=== PATIENT | male | born 1940 | race Caucasian/White ===

== ENCOUNTER 2019-04-11 23:05 | Inpatient (IN) | payer MEDICARE, OTHER ==
[~2019-04-11] VITALS: Ht 165.1 cm; Wt 87.3 kg
[~2019-04-11 23:05] MED LIST: AMLO-147 ORAL; ASPI-1163 ORAL; ATOR10TA65 ORAL; HYDR25TA6 ORAL; LEVO25TA6 PO; LEVO500T48 PO; QUIN40TA31 ORAL
[2019-04-11] MEDS ORDERED: SODIUM CHLORIDE 0.9% 1L BAG IV* STA (23:14)
[2019-04-11] MEDS ORDERED: ACETAMINOPHEN 500 MG TAB PO STA (23:18)
[2019-04-11] MEDS ORDERED: CHLORPROMAZINE 25 MG TAB PO ONE (23:30)
[2019-04-12] MEDS ORDERED: BISACODYL (EC) 5 MG TAB PO PRN (01:00)
[2019-04-12] MEDS ORDERED: DOCUSATE SODIUM 100 MG CAP PO PRN (01:00)
[2019-04-12] MEDS ORDERED: ACETAMINOPHEN 325 MG TAB PO PRN (01:00)
[2019-04-12] MEDS ORDERED: ONDANSETRON 4 MG INJ IV PRN ×3 (01:00→01:30)
[2019-04-12] MEDS ORDERED: CEFTRIAXONE 2 GM/50 ML (PMX) 50 ML IVPB ONE (01:00)
[2019-04-12] MEDS ORDERED: NACL 0.9% 3 ML SYG IV SCH (01:00)
[2019-04-12] MEDS ORDERED: LIDOCAINE/MYLANTA 40 ML BTL PO ONE (01:30)
[2019-04-12] MEDS ORDERED: VANCOMYCIN IV PER PHARMACY XX SCH (01:30)
[2019-04-12] MEDS ORDERED: VANCOMYCIN 1.5 GM/NS 250 ML 250 ML IVPB ONE (02:00)
[2019-04-12] MEDS: SOD CHLORIDE 0.9% 1,000 ML IV SCH ×2 (02:22→13:51)
[2019-04-12] MEDS ORDERED: SOD CHLORIDE 0.9% 500 ML IV ONE (06:00)
[2019-04-12] MEDS: PIPER-TAZO 3.375 GM IV (PMX) 100 ML IVPB SCH ×4 (06:24→23:42)
[2019-04-12 13:10] VITALS: Ht 165.1 cm; Wt 87.3 kg
[2019-04-12 13:45] VITALS: BP 126/59; PULSE 88; RESP 20
[2019-04-12] MEDS ORDERED: VANCOMYCIN 1.25 GM/NS 250 ML 250 ML IVPB SCH (14:00)
[2019-04-12] MEDS ORDERED: POTASSIUM CHLORIDE (SR) 20 MEQ TAB PO STA (14:19)
[2019-04-12] MEDS: GUAIFENESIN/DM 5ML CUP PO PRN (14:29)
[2019-04-12 16:23] VITALS: BP 97/52; PULSE 69; RESP 20
[2019-04-12 16:25] VITALS: BP 109/57; PULSE 85
[2019-04-12 16:26] VITALS: BP 144/64; PULSE 85
[2019-04-12] MEDS ORDERED: CALCIUM CARBONATE 500 MG CHEW TAB PO PRN (17:00)
[2019-04-12] MEDS: ACETAMINOPHEN 325 MG TAB PO PRN (19:54)
[2019-04-12 20:00] VITALS: BP 151/73; PULSE 79; RESP 22
[2019-04-12] MEDS: ATORVASTATIN 10 MG TAB PO SCH (20:00)
[2019-04-13] VITALS (8 sets, daily range): BP systolic 105–156; BP diastolic 54–70; PULSE 54–63; RESP 18–21
[2019-04-13] MEDS: VANCOMYCIN 1.25 GM/NS 250 ML 250 ML IVPB SCH (02:30)
[2019-04-13] MEDS: SOD CHLORIDE 0.9% 1,000 ML IV SCH ×2 (03:39→16:42)
[2019-04-13] MEDS: PIPER-TAZO 3.375 GM IV (PMX) 100 ML IVPB SCH ×3 (05:46→17:11)
[2019-04-13] MEDS: ASPIRIN (EC) 81 MG TAB PO SCH (08:25)
[2019-04-13] MEDS: GUAIFENESIN/DM 5ML CUP PO PRN (17:11)
[2019-04-13] MEDS: ATORVASTATIN 10 MG TAB PO SCH (21:21)
[2019-04-14] VITALS (9 sets, daily range): BP systolic 119–173; BP diastolic 61–77; PULSE 56–67; RESP 18–19
[2019-04-14] MEDS: PIPER-TAZO 3.375 GM IV (PMX) 100 ML IVPB SCH ×3 (00:05→11:11)
[2019-04-14] MEDS: GUAIFENESIN/DM 5ML CUP PO PRN ×4 (01:09→22:54)
[2019-04-14] MEDS: VANCOMYCIN 1.25 GM/NS 250 ML 250 ML IVPB SCH (03:09)
[2019-04-14] MEDS: SOD CHLORIDE 0.9% 1,000 ML IV SCH ×2 (06:16→20:44)
[2019-04-14] MEDS: ASPIRIN (EC) 81 MG TAB PO SCH (08:10)
[2019-04-14] MEDS: CEFTRIAXONE 2 GM/50 ML (PMX) 50 ML IVPB SCH (15:55)
[2019-04-14] MEDS: ATORVASTATIN 10 MG TAB PO SCH (20:43)
[2019-04-15 04:02] VITALS: BP 114/61; PULSE 58; RESP 18
[2019-04-15] MEDS: LEVOTHYROXINE 25 MCG TAB PO SCH (06:18)
[2019-04-15 07:21] VITALS: BP 152/72; PULSE 57; RESP 18
[2019-04-15] MEDS: ASPIRIN (EC) 81 MG TAB PO SCH (08:45)
[2019-04-15 11:52] VITALS: BP 150/67; PULSE 52; RESP 18
[2019-04-15] MEDS: CEFTRIAXONE 2 GM/50 ML (PMX) 50 ML IVPB SCH (15:06)
[2019-04-15 15:34] VITALS: BP 153/69; PULSE 56; RESP 17
[2019-04-15 20:00] VITALS: BP 151/71; PULSE 54; RESP 20
[2019-04-15] MEDS: ATORVASTATIN 10 MG TAB PO SCH (20:02)
[2019-04-16] VITALS: BP 147/73; PULSE 58; RESP 20
[2019-04-16 04:00] VITALS: BP 138/68; PULSE 51; RESP 20
[2019-04-16] MEDS: LEVOTHYROXINE 25 MCG TAB PO SCH (06:12)
[2019-04-16 07:57] VITALS: BP 140/64; PULSE 49; RESP 22
[2019-04-16] MEDS: ASPIRIN (EC) 81 MG TAB PO SCH (08:42)
[2019-04-16 11:33] VITALS: BP 150/65; PULSE 75; RESP 22
[2019-04-16 16:11] VITALS: BP 155/84; PULSE 55; RESP 22
[2019-04-16] MEDS: CEFTRIAXONE 2 GM/50 ML (PMX) 50 ML IVPB SCH (16:43)
[2019-04-16 20:00] VITALS: BP 154/70; PULSE 70; RESP 20
[2019-04-16] MEDS: ATORVASTATIN 10 MG TAB PO SCH (21:34)
[2019-04-17] VITALS (10 sets, daily range): BP systolic 126–177; BP diastolic 59–82; PULSE 51–65; RESP 18–20
[2019-04-17] MEDS: LEVOTHYROXINE 25 MCG TAB PO SCH (06:14)
[2019-04-17] MEDS: ASPIRIN (EC) 81 MG TAB PO SCH (09:00)
[2019-04-17] MEDS: ENOXAPARIN 40 MG/0.4 ML SYG SC SCH (09:08)
[2019-04-17] MEDS: CEFTRIAXONE 2 GM/50 ML (PMX) 50 ML IVPB SCH (15:06)
[2019-04-17] MEDS ORDERED: AMLODIPINE 10 MG TAB PO ONE (16:00)
[2019-04-17] MEDS: ATORVASTATIN 10 MG TAB PO SCH (20:15)
[2019-04-18] VITALS: BP 147/68; PULSE 69; RESP 20
[2019-04-18 04:00] VITALS: BP 115/68; PULSE 62; RESP 20
[2019-04-18] MEDS: LEVOTHYROXINE 25 MCG TAB PO SCH (05:57)
[2019-04-18 07:50] VITALS: BP 155/69; PULSE 58; RESP 22
[2019-04-18] MEDS: AMLODIPINE 10 MG TAB PO SCH (08:40)
[2019-04-18] MEDS: ASPIRIN (EC) 81 MG TAB PO SCH (08:42)
[2019-04-18] MEDS: ENOXAPARIN 40 MG/0.4 ML SYG SC SCH (08:50)
[2019-04-18 12:00] VITALS: BP 150/76; PULSE 62; RESP 22
[2019-04-18] MEDS: CEFTRIAXONE 2 GM/50 ML (PMX) 50 ML IVPB SCH (14:59)
[2019-04-18 16:00] VITALS: BP 144/68; PULSE 58; RESP 22
[2019-04-18 20:33] VITALS: BP 153/65; PULSE 66; RESP 18
[2019-04-18] MEDS: ATORVASTATIN 10 MG TAB PO SCH (20:46)
[2019-04-19] VITALS (8 sets, daily range): BP systolic 126–168; BP diastolic 66–76; PULSE 52–64; RESP 16–22
[2019-04-19] MEDS: LEVOTHYROXINE 25 MCG TAB PO SCH (06:17)
[2019-04-19] MEDS: ASPIRIN (EC) 81 MG TAB PO SCH (08:28)
[2019-04-19] MEDS: AMLODIPINE 10 MG TAB PO SCH (08:28)
[2019-04-19] MEDS: ENOXAPARIN 40 MG/0.4 ML SYG SC SCH (08:55)
[2019-04-19] MEDS: CEFTRIAXONE 2 GM/50 ML (PMX) 50 ML IVPB SCH (14:34)
[2019-04-19] MEDS: ATORVASTATIN 10 MG TAB PO SCH (21:56)
[2019-04-20] VITALS (8 sets, daily range): BP systolic 17–173; BP diastolic 65–78; PULSE 55–67; RESP 17–18
[2019-04-20] MEDS: LEVOTHYROXINE 25 MCG TAB PO SCH (06:18)
[2019-04-20] MEDS: ASPIRIN (EC) 81 MG TAB PO SCH (09:02)
[2019-04-20] MEDS: AMLODIPINE 10 MG TAB PO SCH (09:04)
[2019-04-20] MEDS: ENOXAPARIN 40 MG/0.4 ML SYG SC SCH (10:11)
[2019-04-20] MEDS: CEFTRIAXONE 2 GM/50 ML (PMX) 50 ML IVPB SCH (15:47)
[2019-04-20] MEDS: ATORVASTATIN 10 MG TAB PO SCH (21:37)
[2019-04-21 00:12] VITALS: BP 119/64; PULSE 61; RESP 18
[2019-04-21 04:08] VITALS: BP 115/65; PULSE 57; RESP 18
[2019-04-21] MEDS: LEVOTHYROXINE 25 MCG TAB PO SCH (05:52)
[2019-04-21 07:25] VITALS: BP_SYST 153; BP_SYST 17; BP_DIAS 70; PULSE 61
[2019-04-21] MEDS: AMLODIPINE 10 MG TAB PO SCH (08:07)
[2019-04-21] MEDS: ASPIRIN (EC) 81 MG TAB PO SCH (08:07)
[2019-04-21] MEDS: ENOXAPARIN 40 MG/0.4 ML SYG SC SCH (08:11)
[2019-04-21 12:39] VITALS: BP_SYST 138; BP_SYST 16; BP_DIAS 65; PULSE 54
[2019-04-21] MEDS: CEFTRIAXONE 2 GM/50 ML (PMX) 50 ML IVPB SCH (15:18)
[2019-04-21 15:35] VITALS: BP_SYST 155; BP_SYST 17; BP_DIAS 67; PULSE 56
[2019-04-21 19:41] VITALS: BP 135/65; PULSE 57; RESP 18
[2019-04-21] MEDS: ATORVASTATIN 10 MG TAB PO SCH (20:42)
[2019-04-22 00:21] VITALS: BP 133/60; PULSE 54; RESP 18
[2019-04-22 04:12] VITALS: BP 132/62; PULSE 54; RESP 18
[2019-04-22] MEDS: LEVOTHYROXINE 25 MCG TAB PO SCH (06:50)
[2019-04-22 07:40] VITALS: BP 137/67; PULSE 57; RESP 20
[2019-04-22] MEDS: AMLODIPINE 10 MG TAB PO SCH (09:37)
[2019-04-22] MEDS: ASPIRIN (EC) 81 MG TAB PO SCH (09:37)
[2019-04-22] MEDS: ENOXAPARIN 40 MG/0.4 ML SYG SC SCH (09:45)
[2019-04-22 11:15] VITALS: BP 149/69; PULSE 59; RESP 20
[2019-04-22 14:58] VITALS: BP 148/68; PULSE 60; RESP 20
[2019-04-22] MEDS: CEFTRIAXONE 2 GM/50 ML (PMX) 50 ML IVPB SCH (15:51)
[2019-04-22 20:00] VITALS: BP 142/69; PULSE 60; RESP 17
[2019-04-22] MEDS: ATORVASTATIN 10 MG TAB PO SCH (20:20)
[2019-04-23] VITALS: BP 132/63; PULSE 63; RESP 18
[2019-04-23 04:00] VITALS: BP 139/60; PULSE 57; RESP 17
[2019-04-23] MEDS: LEVOTHYROXINE 25 MCG TAB PO SCH (06:05)
[2019-04-23 07:38] VITALS: BP 134/68; PULSE 57; RESP 20
[2019-04-23] MEDS: ASPIRIN (EC) 81 MG TAB PO SCH (08:39)
[2019-04-23] MEDS: AMLODIPINE 10 MG TAB PO SCH (08:39)
[2019-04-23] MEDS: ENOXAPARIN 40 MG/0.4 ML SYG SC SCH (08:43)
[2019-04-23 10:56] VITALS: BP 152/70; PULSE 62; RESP 20
[2019-04-23 14:54] VITALS: BP 143/67; PULSE 63; RESP 20
[2019-04-23] MEDS: CEFTRIAXONE 2 GM/50 ML (PMX) 50 ML IVPB SCH (16:38)
[2019-04-23 20:00] VITALS: BP 169/77; PULSE 60; RESP 20
[2019-04-23] MEDS: ATORVASTATIN 10 MG TAB PO SCH (20:35)
[2019-04-23] MEDS: DEXTROSE 5%-0.9% NACL 1,000 ML IV SCH (22:21)
[2019-04-24] VITALS (19 sets, daily range): BP systolic 109–162; BP diastolic 59–77; PULSE 56–68; RESP 12–32
[2019-04-24] MEDS: DEXTROSE 5%-0.9% NACL 1,000 ML IV SCH (05:47)
[2019-04-24] MEDS: LEVOTHYROXINE 25 MCG TAB PO SCH (05:47)
[2019-04-24] MEDS: AMLODIPINE 10 MG TAB PO SCH (08:52)
[2019-04-24] MEDS: ENOXAPARIN 40 MG/0.4 ML SYG SC SCH (08:54)
[2019-04-24] MEDS: ASPIRIN (EC) 81 MG TAB PO SCH (08:54)
[2019-04-24] MEDS ORDERED: POLYMYXIN/BACITRACIN 1L IRRIG ONE (10:47)
[2019-04-24] MEDS ORDERED: CEFAZOLIN 1 GM/50 ML (PMX) 50 ML IVPB ONE ×2 (10:53)
[2019-04-24] MEDS ORDERED: LIDOCAINE 2%/EPI 30 ML INJ ONE (10:54)
[2019-04-24] MEDS ORDERED: FENTAnyl 50 MCG/ML VIAL IV PRN (11:00)
[2019-04-24] MEDS ORDERED: MEPERIDINE 25 MG INJ IV PRN (11:00)
[2019-04-24] MEDS ORDERED: PROCHLORPERAZINE 10 MG INJ IV PRN (11:00)
[2019-04-24] MEDS ORDERED: HYDROmorphONE 1 MG/5 ML IV SYRINGE IV PRN ×2 (11:00)
[2019-04-24] MEDS ORDERED: ONDANSETRON 4 MG INJ IV PRN (11:00)
[2019-04-24] MEDS ORDERED: DIPHENHYDRAMINE 50 MG INJ IV PRN (11:00)
[2019-04-24] MEDS ORDERED: PROPOFOL 0 ML ONE (11:31)
[2019-04-24] MEDS ORDERED: PROPOFOL 20 ML ONE (11:31)
[2019-04-24] MEDS ORDERED: LIDOCAINE 2% (SDV) 5 ML INJ ONE (11:31)
[2019-04-24] MEDS ORDERED: FENTAnyl 50 MCG/ML VIAL ONE (11:31)
[2019-04-24] MEDS ORDERED: IOHEXOL 350MG/ML 50 ML BTL ONE (11:42)
[2019-04-24] MEDS ORDERED: morphine 2 MG INJ IV PRN (13:30)
[2019-04-24] MEDS: CEFAZOLIN 1 GM/50 ML (PMX) 50 ML IVPB SCH ×2 (15:04→21:10)
[2019-04-24] MEDS: ACETAMINOPHEN 325 MG TAB PO PRN (15:24)
[2019-04-24] MEDS: CEFTRIAXONE 2 GM/50 ML (PMX) 50 ML IVPB SCH (16:31)
[2019-04-24] MEDS: ATORVASTATIN 10 MG TAB PO SCH (21:10)
[2019-04-25] VITALS: BP 151/72; PULSE 59; RESP 20
[2019-04-25 03:58] VITALS: BP 158/79; PULSE 56; RESP 22
[2019-04-25] MEDS: ACETAMINOPHEN 325 MG TAB PO PRN ×2 (05:37→21:09)
[2019-04-25] MEDS: CEFAZOLIN 1 GM/50 ML (PMX) 50 ML IVPB SCH (06:22)
[2019-04-25] MEDS: LEVOTHYROXINE 25 MCG TAB PO SCH (06:22)
[2019-04-25 07:32] VITALS: BP 160/77; PULSE 58; RESP 20
[2019-04-25] MEDS: AMLODIPINE 10 MG TAB PO SCH (08:36)
[2019-04-25] MEDS: ASPIRIN (EC) 81 MG TAB PO SCH (08:36)
[2019-04-25 11:52] VITALS: BP 158/68; PULSE 58; RESP 22
[2019-04-25] MEDS: CEFTRIAXONE 2 GM/50 ML (PMX) 50 ML IVPB SCH (14:38)
[2019-04-25 15:29] VITALS: BP 144/64; PULSE 62; RESP 18
[2019-04-25 19:49] VITALS: BP 155/71; PULSE 62; RESP 20
[2019-04-25] MEDS: ATORVASTATIN 10 MG TAB PO SCH (21:02)
[2019-04-26 00:20] VITALS: BP 138/62; PULSE 60
[2019-04-26 04:15] VITALS: BP 133/57; PULSE 67
[2019-04-26] MEDS: LEVOTHYROXINE 25 MCG TAB PO SCH (05:56)
[2019-04-26] MEDS ORDERED: LEVOFLOXACIN 500 MG TAB PO SCH (06:00)
[2019-04-26 07:38] VITALS: BP 137/62; PULSE 57; RESP 19
[2019-04-26] MEDS: AMLODIPINE 10 MG TAB PO SCH (08:36)
[2019-04-26] MEDS: ASPIRIN (EC) 81 MG TAB PO SCH (08:36)
[2019-04-26 11:05] VITALS: BP_SYST 160; BP_SYST 166; BP_DIAS 70; BP_DIAS 72; PULSE 62; RESP 18
== END 2019-04-26 11:47 | disposition home or self-care (01) | DRG 854 ==
LOC: E/R 23:05 → TEL 04-12 00:54 → SUATTDRO 04-12 08:23 → TEL 04-13 23:36
PROVIDERS: ADMIT Family Medicine; ATTEND Internal Medicine
PROC: 02H63JZ Insertion of Pacemaker Lead into Right Atrium, Percutaneous Approach (ICD-10-PCS; 2019-04-24)
PROC: 02HK3JZ Insertion of Pacemaker Lead into Right Ventricle, Percutaneous Approach (ICD-10-PCS; 2019-04-24)
PROC: 0JH606Z Insertion of Pacemaker, Dual Chamber into Chest Subcutaneous Tissue and Fascia, Open Approach (ICD-10-PCS; principal; 2019-04-24 12:00)
DX: A41.51 Sepsis due to Escherichia coli [E. coli] (principal); N39.0 Urinary tract infection, site not specified; E87.1 Hypo-osmolality and hyponatremia; I44.2 Atrioventricular block, complete; R65.20 Severe sepsis without septic shock; E86.0 Dehydration; I10 Essential (primary) hypertension; E78.5 Hyperlipidemia, unspecified; E03.9 Hypothyroidism, unspecified; Z85.46 Personal history of malignant neoplasm of prostate; I25.10 Atherosclerotic heart disease of native coronary artery without angina pectoris; E66.01 Morbid (severe) obesity due to excess calories; Z68.32 Body mass index [BMI] 32.0-32.9, adult; Z95.3 Presence of xenogenic heart valve; Z95.1 Presence of aortocoronary bypass graft
CPT/HCPCS: 36415; 71045; 76775; 80048; 80053; 80061; 81001; 83036; 83605; 83735; 83930; 83935; 84145; 84153; 84154; 84300; 84439; 84443; 84484; 85025; 85610; 85730; 87086; 93005; 93306; 93880; C1785; C1898; J0690; J0696; J1650; J2543; J3010; J3370; J7030; J7040; J7042; Q9967